=== PATIENT | female | born 1990 | race Caucasian/White ===

== ENCOUNTER 2021-11-02 15:57 | Emergency (ER) | payer OTHER, SELFPAY ==
--- NOTE | ~2021-11-02 | XR_ITS ---
EXAMINATION: XR chest 1V portable Exam Date/Time: 11/02/2021 17:00 CDT CLINICAL HISTORY: anxiety Comparison: None available. RESULT: Lines, tubes, and devices: None. Lungs and pleura: Clear. Cardiomediastinal silhouette: Normal cardiomediastinal silhouette. Other: No acute osseous or upper abdominal finding. IMPRESSION: No acute cardiopulmonary process Reviewed, dictated and finalized at location K.
[2021-11-02 16:13] VITALS: BP 140/102; PULSE 77; RESP 16; TEMP 36.8; O2SAT 99
--- NOTE | 2021-11-02 16:42 | ECG_ITS ---
Measurements Intervals [place] Rate: 73 P: 8 ND: 129 QRS: 69 QRSD: 83 T: 46 QT: 356 QTc: 394 Interpretive Statements SINUS RHYTHM LOW QRS VOLTAGE IN PRECORDIAL LEADS BASELINE ARTIFACT- II, III, AVL, AVF BORDERLINE ECG Electronically Signed On 11-02-2021 19:44:36 CDT by Dusty Bermeo D.O.
[2021-11-02] MEDS: LORazepam (*CRX) 0.5 MG TABLET 1 MG PO (16:54)
[2021-11-02 17:03] LABS: Basophils Absolute Auto 0.1 K/mm3 (0.0-0.1); Basophils Percent Auto 0.7 % (0.2-1.2); Eosinophils Absolute Auto 0.1 K/mm3 (0-0.3); Eosinophils Percent Auto 0.7 % (0-4.4); Hematocrit 38.8 % (37.0-47.0); Hemoglobin 12.9 g/dL (12.0-15.0); Immature Granulocyte Absolute 0.02 K/mm3 (0.00-0.031); Immature Granulocyte Percent A 0.3 % (0-0.5); Lymphocytes Absolute Auto 0.93 K/mm3 (0.9-3.2); Lymphocytes Percent Auto 13.2 % (18.3-44.2); Mean Corpuscular HGB Conc 33.2 g/dl (32-36); Mean Corpuscular Hemoglobin 29.9 pg (26-34); Mean Platelet Volume 10.4 fl (7.4-10.4); Monocytes Absolute Auto 0.5 K/mm3 (0.1-0.6); Monocytes Percent Auto 6.9 % (2.6-8.5); Neutrophils Absolute Auto 5.5 K/mm3 (1.3-6.7); Neutrophils Percent Auto 78.2 % (45.5-73.1); Platelet Count Result 291 k/mm3 (150-375); Red Blood Count 4.31 M/mm3 (4.2-5.4); Red Cell Distribution Width 12.2 % (11.5-14.5); White Blood Count 7.1 K/mm3 (4.5-10.0)
[2021-11-02 17:05] LABS: Appearance Urine Clear (Clear); Bilirubin Urine Negative (Negative); Blood Urine 3+ (Negative); Glucose Urine UA Negative (Negative); Ketones Urine Negative (Negative); Leukocyte Esterase Ur Trace LEU/UL (Negative); Nitrate Urine Negative (Negative); Protein Urine Negative (Negative); Urobilinogen Urine 0.2 mg/dL (<2.0)
[2021-11-02 17:09] LABS: Bacteria Urine Trace /hpf; RBC Urine 0-2 /hpf (0-2); Squamous Epithelial Cell Urine Occasional /hpf (Few); WBC Urine 0-3 /hpf
[2021-11-02 17:10] LABS: Add Urine Microscopic? YES; Color Urine Light Yellow (Yellow)
[2021-11-02 17:15] LABS: Alanine Aminotransferase 11 U/L (4-35); Albumin Level 4.9 g/dL (3.5-5.1); Alkaline Phosphatase 46 U/L (38-126); Anion Gap 8 mmol/L (8-16); Aspartate Amino Transferase 18 U/L (14-36); Bilirubin,Total 0.4 mg/dL (0.2-1.3); Blood Urea Nitrogen 9 mg/dL (7-17); Carbon Dioxide 27 mmol/L (22-30); Chloride 104 mmol/L (98-107); Estimated CRCL calculation 81 ml/min; Estimated Glomerular Filt Rate > 60; Glucose 96 mg/dL (65-110); Potassium 3.8 mmol/L (3.4-5.0); Sodium 139 mmol/L (137-145)
[2021-11-02 17:19] LABS: Amphetamine Screen Urine Negative (Negative); Barbiturate Screen Urine Negative (Negative); Benzodiazepines Screen Urine Negative (Negative); Cannabinoid Screen Urine Positive (Negative); Cocaine Screen Urine Negative (Negative); Methadone Screen Urine Negative (Negative); Opiate Screen Urine Negative (Negative); Phencyclidine Screen Urine Negative (Negative)
--- NOTE | 2021-11-02 17:44 | ED.ANXIETY ---
HPI - Anxiety General Chief Complaint: Anxiety Stated Complaint: anxiety Time Seen by Provider: 11/02/21 16:21 Source: patient and family Mode of arrival: ambulatory Limitations: no limitations History of Present Illness HPI narrative: Patient is 30 years old white female with history of anxiety and panic attacks, and fluoxetine 20 mg once a day. Have a lot of stress lately at work. Been experiencing recurrent panic attack over the last few days, concerned about the possibility of heart attack. Patient complaining of sudden onset of lightheadedness, chest pain, hyperventilation, stomach upset associated with nausea and sometimes vomiting, jittery feeling inside, shaking outside similar to her history of panic attacks. She denies any fever, chills, nausea, vomiting. She denies SI or HI. Related Data Home Medications Medication Instructions Recorded Confirmed multivitamin with minerals-folic tablet PO 10/22/21 10/22/21 acid 200 mcg chewable tablet Allergies Allergy/AdvReac Type Severity Reaction Status Date / Time No Known Allergies Allergy Verified 11/02/21 16:16 Review of Systems Review of Systems: All systems reviewed & are unremarkable except as noted in HPI and below PMFSH Past Medical History Medical History Anxiety Borderline hypothyroidism Depression Hyperhidrosis Surgical History Surgical History Hx of wisdom tooth extraction Family History Family History Father Alcoholism Mother Depression Anxiety Grandparent Diabetes mellitus Cancer of unknown origin Grandparent Bone cancer Hypertension Heart disease Social History Social History Smoking status: Former smoker Tobacco type: cigarettes and e-cigarettes/vaping Additional smoking assessment comments: quit smoking cigarettes in 2018; currently vapes Alcohol intake: current Alcohol use details: seldom; socially Substance use: current Substance use type: does not use Other substance usage details: smokes marijuana daily, 3-10 x daily Exam Narrative: General appearance: Well-developed, well-nourished Skin: Normal color Head: Normocephalic, nontraumatic Eyes: Clear conjunctiva ENT: Oropharynx normal, ears normal, nose normal Neck: Supple, nontender Chest and respiratory: Airway patent, no respiratory distress, no accessory muscle use Heart: Regular rate/rhythm Abdomen: Soft, nontender, no organomegaly, quiet bowel sounds Vascular: Normal peripheral pulses, normal capillary refill. 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 Work-up today showed no abnormality to explain patient condition. Patient symptoms resolved completely after having 1 mg of Ativan orally. Patient had Xanax at home to take as needed, did not use it for the last 5 years. Vital Signs Vital signs: Vital Signs Temperature 36.8 C 11/02/21 16:13 Pulse Rate 77 11/02/21 16:13 Respiratory Rate 16 11/02/21 16:13 Blood Pressure 140/102 H 11/02/21 16:13 Pulse Oximetry 99 11/02/21 16:13 Temperature 36.8 C 11/02/21 16:13 Pulse Rate 77 11/02/21 16:13 Respiratory Rate 16 11/02/21 16:13 Blood Pressure 140/102 H 11/02/21 16:13 Pulse Oximetry 99 11/02/21 16:13 MDM - Anxiety MDM Narrative Medical decision making narrative: Patient presents with pa
[2021-11-02 18:01] VITALS: BP 111/70; PULSE 60; RESP 17; O2SAT 97
== END 2021-11-02 18:03 | disposition home or self-care (01) ==
PROVIDERS: Emergency Provider Emergency Medicine; PCP Family Medicine
DX: F41.9 Anxiety disorder, unspecified (principal); F12.10 Cannabis abuse, uncomplicated; F17.290 Nicotine dependence, other tobacco product, uncomplicated; R94.31 Abnormal electrocardiogram [ECG] [EKG]
CPT/HCPCS: 36415; 71045; 80053; 80307; 81001; 81025; 84443; 85025; 93005; 99283; A9270

== ENCOUNTER → 2023-06-23 07:26 | Outpatient (CLI) | payer BC, SELFPAY ==
--- NOTE | ~2023-06-23 | XR_ITS ---
XR lumbar spine 2-3V 06/23/2023 07:49 Indication: Low back pain Procedure: 3 views lumbar spine Comparison: No prior studies for comparison. Findings: Vertebral body heights are maintained. Mild disc narrowing at L4-5 and L5-S1. Mild dextrocu rvature of the lumbar spine. Pedicles intact. Sacral foramen are symmetric. No fracture or traumatic malalignment. No evidence for spondylolisthesis. Impression: 1: Mild lumbar spondylosis. Reviewed, dictated and finalized at location L. [employer] WORKER Impression: 1: Mild lumbar spondylosis.
== END ==
PROVIDERS: PCP Physician Assistant Medical; Visit Provider Physician Assistant Medical
DX: M54.30 Sciatica, unspecified side (principal); M47.896 Other spondylosis, lumbar region
CPT/HCPCS: 72100